=== PATIENT | female | born 1980 | race American Indian/Alaskan Native ===

== ENCOUNTER 2017-05-16 10:51 | Emergency (ER) | payer BC, MEDICAID ==
[2017-05-16 11:05] VITALS: BP 135/91
[2017-05-16 11:53] LABS: Bilirubin,Urine NEG (Negative); Blood,Urine NEG (Negative); Ketones,Urine NEG (Negative); Leukocyte Esterase,Urine NEG (Negative); Mucus,Urine 1+ /HPF; Nitrite,Urine NEG (Negative); Protein,Urine <15 mg/dL mg/dL (Negative); Urobilinogen,Urine < 2.0 mg/dL (<2.0); WBC,Urine < 1.0 /HPF (0.0-6.0)
[2017-05-16 12:02] LABS: Basophils % (Auto) 0.7 % (0.0-1.8); Eosinophils % (Auto) 0.9 % (0.0-4.3); Hematocrit 40.9 % (30.3-42.9); Mean Corpuscular HGB Conc 34 % (30-34); Mean Corpuscular Hemoglobin 31 pg (28-32); Mean Corpuscular Volume 90 fl (79-97); Platelet Count 324 K/mm3 (140-440); Red Blood Count 4.53 M/mm3 (3.65-5.03); Red Cell Distribution Width 13.1 % (13.2-15.2); White Blood Count 6.2 K/mm3 (4.5-11.0)
[2017-05-16 12:16] LABS: Alanine Aminotransferase 19 units/L (7-56); Albumin 4.2 g/dL (3.9-5); Albumin/Globulin Ratio 1.3 %; Alkaline Phosphatase 57 units/L (35-129); Anion Gap 19 mmol/L; BUN/Creatinine Ratio 17.14; Blood Urea Nitrogen 12 mg/dL (7-17); Calcium 9.5 mg/dL (8.4-10.2); Carbon Dioxide 23 mmol/L (22-30); Chloride 101.9 mmol/L (98-107); Glucose 85 mg/dL (65-100); Potassium 4.4 mmol/L (3.6-5.0); Sodium 139 mmol/L (137-145); Total Protein 7.4 g/dL (6.3-8.2)
[2017-05-16 12:36] LABS: Lipase 33 units/L (13-60)
== END 2017-05-16 11:27 | disposition left against medical advice (07) ==
LOC: ED 10:51
DX: R10.9 Unspecified abdominal pain (principal); Z53.21 Procedure and treatment not carried out due to patient leaving prior to being seen by health care provider
CPT/HCPCS: 36415; 80053; 81001; 81025; 83690; 85025

== ENCOUNTER 2017-05-17 08:48 | Emergency (ER) | payer BC, MEDICAID ==
--- NOTE | 2017-05-17 09:02 | Emergency Department Report ---
Chief Complaint: Abdominal Pain Stated Complaint: ABD PAIN Time Seen by Provider: 05/17/17 08:59 - HPI History of Present Illness: PT c/o abd pain x forever. PT states her upper abd hurts 2-3 times a week. no associated with food. - ROS Review of Systems: -fevers/ chills - Exam Physical Exam: pt looks well, non toxic. abd soft and non tender at this time. MSE screening note: Focused history and physical exam performed. Due to findings the following was ordered: labs ED Disposition for MSE Condition: Stable
[2017-05-17 09:24] LABS: Basophils % (Auto) 0.8 % (0.0-1.8); Eosinophils % (Auto) 1.4 % (0.0-4.3); Hematocrit 40.5 % (30.3-42.9); Hemoglobin 13.7 gm/dl (10.1-14.3); Mean Corpuscular HGB Conc 34 % (30-34); Mean Corpuscular Hemoglobin 31 pg (28-32); Mean Corpuscular Volume 91 fl (79-97); Platelet Count 331 K/mm3 (140-440); Red Blood Count 4.46 M/mm3 (3.65-5.03); Red Cell Distribution Width 13.1 % (13.2-15.2); White Blood Count 6.9 K/mm3 (4.5-11.0)
[2017-05-17 09:41] LABS: Alanine Aminotransferase 18 units/L (7-56); Albumin 3.9 g/dL (3.9-5); Albumin/Globulin Ratio 1.2 %; Alkaline Phosphatase 52 units/L (35-129); Anion Gap 17 mmol/L; BUN/Creatinine Ratio 18.57; Blood Urea Nitrogen 13 mg/dL (7-17); Calcium 9.1 mg/dL (8.4-10.2); Carbon Dioxide 23 mmol/L (22-30); Chloride 102.8 mmol/L (98-107); Glucose 88 mg/dL (65-100); Potassium 3.9 mmol/L (3.6-5.0); Sodium 139 mmol/L (137-145); Total Protein 7.2 g/dL (6.3-8.2)
--- NOTE | 2017-05-17 12:07 | Emergency Department Report ---
HPI - General Chief Complaint: Abdominal Pain Time Seen by Provider: 05/17/17 08:59 - HPI HPI: Room 8 The patient is a 36-year-old female presenting with a chief complaint of abdominal pain. The patient states she has had epigastric abdominal pain for 3 years intermittently and has never been given a definitive diagnosis as a cause. The patient states over the past 3 weeks she has had a recent flareup of this epigastric abdominal pain has been intermittent. Patient admits to increased pain several hours after eating meals. Patient is to nausea and vomiting but denies diarrhea or fever. Patient states the pain does radiate to the right back occasionally. The patient currently gives her pain score of 7/ 10. Location: Epigastric Duration: 3 weeks Quality: Pain Severity:7/10 Modifying factors: [see above] Context: [see above] Mode of transportation: [not driving] ED Past Medical Hx - Family History Family history: no significant - Social History Smoking Status: Never Smoker Substance Use Type: None (denies illicit drug use) - Medications Home Medications: Home Medications Medication Instructions Recorded Confirmed Last Taken Type Famotidine [Pepcid] 20 mg PO BID #30 tablet 05/17/17 Unknown Rx Promethazine [Phenergan TAB] 25 mg PO Q6HR PRN #20 tab 05/17/17 Unknown Rx Promethazine [Phenergan] 25 mg [place] Q6HR PRN #5 supp.rect 05/17/17 Unknown Rx traMADol [Ultram] 50 mg PO Q6HR PRN #10 tablet 05/17/17 Unknown Rx ED Review of Systems ROS: Stated complaint: ABD PAIN Other details as noted in HPI Comment: All other systems reviewed and negative Constitutional: denies: chills, fever Eyes: denies: eye pain, eye discharge, vision change ENT: denies: ear pain, throat pain Respiratory: denies: cough, shortness of breath, wheezing Cardiovascular: denies: chest pain, palpitations Endocrine: no symptoms reported Gastrointestinal: abdominal pain, nausea, vomiting. denies: diarrhea Genitourinary: denies: urgency, dysuria, discharge Musculoskeletal: back pain Skin: denies: rash, lesions Neurological: denies: headache, weakness, paresthesias Psychiatric: denies: anxiety, depression Hematological/Lymphatic: denies: easy bleeding, easy bruising Physical Exam - Physical Exam Vital Signs: Vital Signs 05/17/17 05/17/17 09:00 11:52 Temperature 97.5 F L 98 F Pulse Rate 90 80 Respiratory 16 16 Rate Blood Pressure 137/94 Blood Pressure 142/99 [Left] O2 Sat by Pulse 100 98 Oximetry Physical Exam: GENERAL: The patient is well-developed well-nourished female sitting on stretcher not appearing to be in acute distress. [] HEENT: Normocephalic. Atraumatic. Extraocular motions are intact. Patient has moist mucous membranes. NECK: Supple. Trachea midline CHEST/LUNGS: Clear to auscultation. There is no respiratory distress noted. HEART/CARDIOVASCULAR: Regular. There is no tachycardia. There is no gallop rub or murmur. ABDOMEN: Abdomen is soft, nontender. Patient has normal bowel sounds. There is no abdominal distention. SKIN: There is no rash. There is no edema. There is no diaphoresis. NEURO: The patient is awake, alert, and oriented. The patient is cooperative. The patient has normal speech MUSCULOSKELETAL: There is no evidence of acute injury. ED Course Vital Signs 05/17/17 05/17/17 09:00 11:52 Temperature 97.5 F L 98 F Pulse Rate 90 80 Respiratory 16 16 Rate Blood Pressure 137/94 Blood Pressure 142/99 [Left] O2 Sat by Pulse 100 98 Oximetry ED Medical Decision Making - Lab Data Result diagrams: 05/17/17 09:08 05/17/17 09:08 Laboratory Tests 05/17/17 05/17/17 05/17/17 09:08 09:08 09:08 WBC 6.9 RBC 4.46 Hgb 13.7 Hct 40.5 MCV 91 MCH 31 MCHC 34 RDW 13.1 L Plt Count 331 Lymph % (Auto) 46.3 H [place] % (Auto) 6.7 Eos % (Auto) 1.4 Baso % (Auto) 0.8 Lymph # 3.2 [place] # 0.5 Eos # 0.1 Baso # 0.1 Seg Neutrophils % 44.8 Seg Neutrophils # 3.1 Sodium 139 Potassium 3.9 Chloride 102.8 Carbon Dioxide 23 Anion Gap 17 BUN 13 Creatinine 0.7 Estimated GFR > 60 BUN/Creatinine Ratio 18.57 Glucose 88 Calcium 9.1 Total Bilirubin 0.90 AST 19 ALT 18 Alkaline Phosphatase 52 Total Protein 7.2 Albumin 3.9 Albumin/Globulin Ratio 1.2 HCG, Qual Negative - Radiology Data Radiology results: report reviewed (right upper quadrant ultrasound), image reviewed (right upper quadrant ultrasound) Right upper quadrant ultrasound (read by radiologist)-normal right upper quadrant sonogram. - Differential Diagnosis peptic ulcer disease, biliary colic, pancreatitis, gastritis Critical care attestation.: If time is entered above; I have spent that time in minutes in the direct care of this critically ill patient, excluding procedure time. ED Disposition Clinical Impression: Abdominal pain, Nausea & vomiting Disposition: TO HOME OR SELFCARE Is pt being admited?: No Does the pt Need Aspirin: No Condition: Stable Instructions: Abdominal Pain (ED) Additional Instructions: Return to the emergency department immediately should you develop worsening symptoms, fever, inability to tolerate food or liquid or any other concerns. Prescriptions: Famotidine [Pepcid] 20 mg PO BID #30 tablet Promethazine [Phenergan TAB] 25 mg PO Q6HR PRN #20 tab PRN Reason: Nausea Promethazine [Phenergan] 25 mg [place] Q6HR PRN #5 supp.rect PRN Reason: Vomiting traMADol [Ultram] 50 mg PO Q6HR PRN #10 tablet PRN Reason: Pain Referrals: ANN ASHBY MD [Staff Physician] - [facility] (Dr. Ashby is a ship washer. Please follow-up with him for further evaluation) Time of Disposition: 13:28
--- NOTE | 2017-05-17 13:23 | Ultrasound Report ---
ULTRASOUND ABDOMEN LIMITED INDICATION: Abdominal pain. COMPARISON: None similar at this institution. FINDINGS: Right upper quadrant ultrasound demonstrates unremarkable liver. No gallstones or pericholecystic fluid. Gallbladder wall thickness is 2 mm. Negative sonographic Steele's sign. Common bile duct is 4 mm. Imaged pancreas, nonaneurysmal abdominal aorta and IVC within normal limits. Nonhydronephrotic, 9.5 x 3.5 x 5.1 cm right kidney with cortical thickness of 1.2 cm. CONCLUSION: Normal right upper quadrant sonogram, as described. Thank you for the opportunity to participate in this patient's care.
[2017-05-17 13:49] VITALS: BP 142/86
== END 2017-05-17 13:52 | disposition home or self-care (01) ==
LOC: ED 08:48
DX: R10.13 Epigastric pain (principal); R11.2 Nausea with vomiting, unspecified
CPT/HCPCS: 36415; 76705; 80053; 84703; 85025; 99284